=== PATIENT | male | born 1985 | race American Indian/Alaskan Native ===

== ENCOUNTER 2017-09-26 20:54 | Emergency (ER) | payer MEDICAID ==
[2017-09-26 21:24] VITALS: TEMP 98
[2017-09-26] MEDS ORDERED: Morphine 4 mg/ml ISec IVP STA (22:11)
[2017-09-26] MEDS ORDERED: Sodium Chloride 0.9% 1,000 ML IV STA (22:11)
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
[2017-09-26 22:56] LABS: BASO # 0.02 K/mm3 (0.0-2.0); BASO % 0.3 % (0.0-3.0); EOS # 0.2 (0.0-0.7); EOS % 2.6 % (1.5-5.0); GRAN # 3.88 (1.4-6.5); GRAN % 62.1 % (50.0-68.0); HEMOGLOBIN 9.5 g/dL (14.0-18.0); LYMPH # 1.7 (1.2-3.4); LYMPH % 27.1 % (22.0-35.0); MEAN CELL VOLUME 93.9 fl (80.0-105.0); MEAN CORPUSCULAR HEMOGLOBIN 29.1 pg (25.0-35.0); MEAN PLATELET VOLUME 9.7 fl (7.0-11.0); MONO # 0.5 (0.1-0.6); MONO % 7.9 % (1.0-6.0); RBC 3.26 10^6/uL (3.5-6.1); RED CELL DISTRIBUTION WIDTH 13.7 % (11.5-14.5); WHITE BLOOD COUNT 6.2 10^3/ul (4.5-11.0)
[2017-09-26 22:58] LABS: ALB/GLOB RATIO 1.3 (1.1-1.8); ALBUMIN 3.6 g/dL (3.0-4.8); ALT/SGPT 58 U/L (7-56); AST/SGOT 34 U/L (17-59); BLOOD UREA NITROGEN 15 mg/dL (7-21); CALCIUM 9.6 mg/dL (8.4-10.5); GFR AFRICAN-AMERICAN > 60; GFR NON-AFRICAN AMERICAN > 60; LIPASE 98 U/L (23-300)
[2017-09-26 23:11] LABS: INR 1.12 (0.93-1.08); PARTIAL THROMBOPLASTIN TIME 30.5 Seconds (25.1-36.5); PROTHROMBIN TIME 12.8 SECONDS (9.4-12.5)
[2017-09-26] MEDS ORDERED: Iohexol 350 MG/100 ML VIAL ONE (23:40)
[2017-09-27] MEDS ORDERED: ceFAZolin 1 gm in NS 1 GM/100 ML BAG IVPB STA (01:28)
[2017-09-27 03:25] VITALS: RESP 18; O2SAT 100
[2017-09-27 03:26] VITALS: BP 112/62; PULSE 88
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
== END 2017-09-27 03:45 | disposition home or self-care (01) ==
LOC: MERGE 20:54 → ED 20:54
DX: Z48.89 Encounter for other specified surgical aftercare (principal)
CPT/HCPCS: 74177; 80053; 83690; 85025; 85610; 85730; 87070; 96361; 96365; 96375; 99284; J0690; J2270; J2405; J7040; Q9967